=== PATIENT | female | born 1990 | race African-American/Black ===

== ENCOUNTER 2024-09-22 15:07 | Emergency (ER) | payer MEDICAID ==
[~2024-09-22] VITALS: Ht 167.6 cm; Wt 51.5 kg
[2024-09-22 15:22] VITALS: BP 110/73; TEMP 98.8
[2024-09-22 16:51] LABS: BASOPHILS % (AUTO) 0.7 % (0-1); EOSINOPHILS # (AUTO) 0.2 X10'3 (0-0.9); EOSINOPHILS % (AUTO) 4.8 % (0-6); HEMATOCRIT 40.7 % (35.0-45.0); HEMOGLOBIN 13.5 g/dl (12.0-16.0); LYMPHOCYTES # (AUTO) 1.3 X10'3 (1.1-4.8); LYMPHOCYTES % (AUTO) 32.4 % (21-51); MEAN CORPUSCULAR HEMOGLOBIN 28.8 PG (27.0-31.0); MEAN CORPUSCULAR HGB CONC 33.1 g/dL (33.0-36.5); MEAN PLATELET VOLUME 8.4 FL (7.4-10.4); MONOCYTES # (AUTO) 0.3 X10'3 (0-0.9); MONOCYTES % (AUTO) 7.3 % (2-12); NEUTROPHILS # (AUTO) 2.3 X10'3 (1.8-7.7); NEUTROPHILS % (AUTO) 54.8 % (42-75); PLATELET COUNT 255 X10'3 (140-440); RED BLOOD COUNT 4.68 X10'6 (4.20-5.60); RED CELL DISTRIBUTION WIDTH 15.4 % (11.5-14.5); WHITE BLOOD COUNT 4.1 X10'3 (4.5-11.0)
[2024-09-22 17:03] LABS: ALANINE AMINOTRANSFERASE 21 U/L (12-78); ALBUMIN 3.7 G/DL (3.4-5.0); ALBUMIN/GLOBULIN RATIO 0.8 (1.1-1.5); ALKALINE PHOSPHATASE 46 IU/L (46-116); ANION GAP 5 (8-16); ASPARTATE AMINO TRANSFERASE 18 U/L (10-37); BILIRUBIN,TOTAL 0.4 MG/DL (0.1-1.0); BLOOD UREA NITROGEN 9 MG/DL (7-18); BUN/CREATININE RATIO 14.1 (10.0-20.0); CALCIUM 8.9 MG/DL (8.5-10.1); CHLORIDE 103 MMOL/L (99-107); CREATININE 0.64 MG/DL (0.40-0.90); GLUCOSE 81 MG/DL (70-104); POTASSIUM 4.3 MMOL/L (3.5-5.1); SODIUM 138 MMOL/L (135-145); TOTAL CARBON DIOXIDE 29.6 MMOL/L (24-32); TOTAL PROTEIN 8.1 G/DL (6.4-8.2); eCRCL 102 ML/MIN; eGFR > 90 ML/MIN
[2024-09-22 17:10] LABS: PRO BRAIN NATRIURETIC PEPTIDE 41 PG/ML (0-125)
[2024-09-22] MEDS ORDERED: PRED20TA PO ×2 (17:28→18:08)
[2024-09-22] MEDS: dexamethasone sod phosphate 10mg/ml inj IM STA (17:42)
[2024-09-22] MEDS: ipratropium/albuterol 3ml nebule NEB STA (17:52)
[2024-09-22 17:55] VITALS: O2SAT 100
[2024-09-22 18:00] VITALS: PULSE 80; RESP 16; O2SAT 100
== END 2024-09-22 18:10 | disposition home or self-care (01) ==
LOC: ER 15:09
DX: R00.2 Palpitations (principal); J45.909 Unspecified asthma, uncomplicated; Z88.0 Allergy status to penicillin; Z79.52 Long term (current) use of systemic steroids
CPT/HCPCS: 36415; 71045; 80053; 83880; 84484; 85025; 93005; 94640; 96372; 99285; J1100; 94760

== ENCOUNTER 2024-09-24 05:33 | Emergency (ER) | payer MEDICAID ==
[~2024-09-24] VITALS: Ht 167.6 cm; Wt 43.5 kg
[~2024-09-24 05:33] MED LIST: PRED20TA PO
[2024-09-24] MEDS ORDERED: PRED20TA PO (06:42)
[2024-09-24] MEDS ORDERED: ALBU8HFA INH (06:43)
[2024-09-24] MEDS ORDERED: INHA1EAC52 INH (06:44)
[2024-09-24] MEDS ORDERED: BENZ-38 PO (06:45)
[2024-09-24] MEDS ORDERED: AZIT-164 PO (06:50)
[2024-09-24 06:51] VITALS: BP 110/69; PULSE 79; RESP 14; TEMP 98; O2SAT 99
== END 2024-09-24 07:03 | disposition home or self-care (01) ==
LOC: ER 05:34
DX: J98.01 Acute bronchospasm (principal); B34.9 Viral infection, unspecified; Z88.0 Allergy status to penicillin; Z79.52 Long term (current) use of systemic steroids; Z79.899 Other long term (current) drug therapy
CPT/HCPCS: 99283

== ENCOUNTER 2024-09-26 22:37 | Emergency (ER) | payer MEDICAID ==
[~2024-09-26] VITALS: Ht 167.6 cm; Wt 47.7 kg
[~2024-09-26 22:37] MED LIST changes: +ALBU8HFA INH; +AZIT-164 PO; +BENZ-38 PO; +INHA1EAC52 INH
[2024-09-26 23:48] LABS: BASOPHILS # (AUTO) 0.1 X10'3 (0-0.2); BASOPHILS % (AUTO) 1.1 % (0-1); EOSINOPHILS # (AUTO) 0.2 X10'3 (0-0.9); EOSINOPHILS % (AUTO) 2.4 % (0-6); HEMATOCRIT 40.7 % (35.0-45.0); HEMOGLOBIN 13.4 g/dl (12.0-16.0); LYMPHOCYTES # (AUTO) 2.8 X10'3 (1.1-4.8); LYMPHOCYTES % (AUTO) 39.7 % (21-51); MEAN CORPUSCULAR HEMOGLOBIN 28.5 PG (27.0-31.0); MEAN CORPUSCULAR VOLUME 86.5 FL (78-98); MEAN PLATELET VOLUME 8.2 FL (7.4-10.4); MONOCYTES # (AUTO) 0.5 X10'3 (0-0.9); MONOCYTES % (AUTO) 6.9 % (2-12); NEUTROPHILS # (AUTO) 3.5 X10'3 (1.8-7.7); NEUTROPHILS % (AUTO) 49.9 % (42-75); PLATELET COUNT 271 X10'3 (140-440); RED CELL DISTRIBUTION WIDTH 14.7 % (11.5-14.5)
[2024-09-27 00:05] LABS: D-DIMER < 0.19 MG/L FEU (0-0.50)
[2024-09-27 00:09] LABS: ALBUMIN 3.7 G/DL (3.4-5.0); ANION GAP 6 (8-16); BLOOD UREA NITROGEN 12 MG/DL (7-18); BUN/CREATININE RATIO 17.1 (10.0-20.0); CALCIUM 8.7 MG/DL (8.5-10.1); CHLORIDE 104 MMOL/L (99-107); GLUCOSE 85 MG/DL (70-104); POTASSIUM 3.8 MMOL/L (3.5-5.1); PRO BRAIN NATRIURETIC PEPTIDE 33 PG/ML (0-125); SODIUM 138 MMOL/L (135-145); TOTAL CARBON DIOXIDE 28.2 MMOL/L (24-32); eCRCL 86 ML/MIN; eGFR > 90 ML/MIN
[2024-09-27 00:46] LABS: URINE HCG NEGATIVE (NEG)
[2024-09-27] MEDS ORDERED: IBUP-1984 PO (01:04)
[2024-09-27] MEDS: ibuprofen tablet 400 MG TABLET PO ONE (01:08)
[2024-09-27 01:12] VITALS: BP 130/87; PULSE 87; RESP 15; TEMP 98.2; O2SAT 100
== END 2024-09-27 01:20 | disposition home or self-care (01) ==
LOC: ER 22:37
DX: J06.9 Acute upper respiratory infection, unspecified (principal); R05.9 Cough, unspecified; R07.9 Chest pain, unspecified; Z88.0 Allergy status to penicillin; Z88.1 Allergy status to other antibiotic agents; Z88.8 Allergy status to other drugs, medicaments and biological substances
CPT/HCPCS: 36415; 71045; 80048; 81025; 83880; 84145; 84484; 85025; 85379; 93005; 99285

== ENCOUNTER 2024-12-07 07:25 | Emergency (ER) | payer MEDICAID ==
[~2024-12-07] VITALS: Ht 167.6 cm; Wt 48.9 kg
[~2024-12-07 07:25] MED LIST changes: -AZIT-164 PO; -BENZ-38 PO
[2024-12-07 07:30] VITALS: BP 109/63; PULSE 78; RESP 16; TEMP 99.7; O2SAT 100
--- NOTE | 2024-12-07 08:21 | Physician Documentation ---
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 Patient does not describe the flashing light in one eye or the other also denies eye pain or loss of vision. Timing/Duration: days Severity: none Onset/Context: spontaneous; Denies: trauma, recent dental procedure Exposure To: Reports: nothing History Of: No History of: glaucoma Prearrival Treatment: no prearrival treatment Associated Symptoms: Denies: eye discharge, facial pain/swelling, vision loss Bleeding: none Loss of Hearing: none Medication Reconciliation Allergies: Coded Allergies: Penicillins (Verified Allergy, Unknown, 09/24/24) >5 years, unknown reaction, unknown treatment. Scheduled Prednisone* (Prednisone*), 1 TAB PO Q12H Prednisone* (Prednisone*), 20 TAB PO DAILY Scheduled PRN albuterol inhaler (Pro-Air Inhaler), 2 PUFF INH 5X/DAY PRN for cough Durable Medical Equipment Inhaler, Assist Devices (Breatherite Spacer-Adult Mask), EA INH 5X/DAY PRN for cough, (DME) Past Medical History Past Medical History: Asthma Review of Systems All Other Systems at this time: Reviewed and Negative Constitutional: Reports: see HPI Eyes: Reports: see HPI, other; Denies: double vision, redness, tearing Physical Exam Vital Signs: RN Vital Signs have been reviewed: Yes, Temperature: 99.7, Source: Oral, Heart Rate: 78, Respiratory Rate: 16, BP: 109/63, Pulse Oximetry: 100, Weight: 48.900 Pulse Oximetry Reflects: adequate oxygenation General Appearance: alert, no apparent distress Eye Lid: normal inspection; No: discharge, edema, redness Conjunctiva: normal inspection Pupils/EOM/Fundus: PERRLA; No: hemorrhage (R), hemorrhage (L), exudate (R), exudate (L) Slit Lamp Exam: No: corneal abrasion, foreign body Progress Results/Orders Results/Orders Vital Signs 12/07/24 07:30 Temp 99.7 Pulse 78 Resp 16 B/P (MAP) 109/63 Pulse Ox 100 Consults/PCP Consults/PCP : Additional Comment Consult with Dr. Doss Ophthalmology, he recommended calling the office to discuss getting her follow up appointment with one of his colleagues, ZACKARY gutierrez his call the office and I spoke with the staff as well they are working on getting the patient appointment for follow up either today or tomorrow. Patient will be given follow up information, ophthalmologic exam in the emergency department did not reveal any 8:40 a.m., patient has an appointment at 9:00 a.m., will be discharged immediately Medical Decision Making Eye Diff. Dx: Considerations: Include: Corneal laceration, Foreign body-lid, Ir itis, Retinal artery occulsion, Retinal vein occlusion, Vitreous hemorrhage Departure Disposition: 01 HOME / SELF CARE / HOMELESS Impression: Primary Impression: Visual disturbance Condition: Stable Additional Instructions: Please go to the ophthalmology appointment at 9:00 a.m. that has been arranged for you Referrals: NO PRIMARY CARE PROVIDER (PCP) TRAV DOSS MD Education Educated: Patient Educated regarding: diagnosis, need for follow up Signature Scribe Signature: None Attestation: Dictated by myself TRAV JOHNS DO Dec 07, 2024 08:21
== END 2024-12-07 08:51 | disposition home or self-care (01) ==
LOC: ER 07:31
DX: H53.9 Unspecified visual disturbance (principal); J45.909 Unspecified asthma, uncomplicated; Z88.0 Allergy status to penicillin; Z79.899 Other long term (current) drug therapy
CPT/HCPCS: 99281; 99283